=== PATIENT | female | born 1970 | race Caucasian/White ===

== ENCOUNTER 2020-03-18 09:53 | Emergency (ER) | payer BC, OTHER ==
--- NOTE | 2020-03-18 10:39 | EDM.PDOC ---
ED HPI GENERAL MEDICAL PROBLEM - General Chief Complaint: Flank Pain Stated Complaint: LT SIDE ARM AND FLANK PAIN Time Seen by Provider: 03/18/20 10:15 Source of Information: Reports: Patient History Limitations: Reports: No Limitations - History of Present Illness INITIAL COMMENTS - FREE TEXT/NARRATIVE: 49-year-old female presents to the ER with complaints of left flank pain that started 2 days ago, she states that she became dizzy today associated with it and decided to come to the emergency department. She denies nausea vomiting or diarrhea. States she has developed a cough and chills over the past couple of days as well. Pain is located in the left flank, she says it is intermittent and it does get worse with taking a deep breath although in the shower this morning she was standing and said it was a stabbing pain and she had to brace herself so that she did not fall. She also states that the pain is now radiating around the front of her abdomen under her left ribs. She states that laying in bed makes it feel better. She also reports that over the last couple of the days she has noticed both of her arms tingling at nighttime and increased weakness she initially thought it was when she had sleep with her arms elevated above her head however she states that there is no association with this. Also states over the course of the past 2 days she has been sleeping significantly more and has no energy. She is not aware of any known exposure to Covid and states she has been good about wearing a mask and face shield when at work. History of elevated cholesterol for which she does not take medication otherwise states medical history is unremarkable. Her primary care physician is Nicci León at [facility]. Onset: Gradual Left Flank Pain Score (Numeric/FACES): 3 - Related Data Allergies Allergy/AdvReac Type Severity Reaction Status Date / Time No Known Allergies Allergy Verified 03/18/20 10:07 Home Meds: Home Meds Levothyroxine [Synthroid] 50 mcg PO ACBREAKFAST 03/18/20 [History] Sertraline [Zoloft] 50 mg PO DAILY 03/18/20 [History] Past Medical History - Past Health History Medical/Surgical History: Denies Medical/Surgical History HEENT History: Reports: Glaucoma Gastrointestinal History: Reports: GERD Musculoskeletal History: Reports: Other (See Below) Other Musculoskeletal History: colar bone Psychiatric History: Reports: Depression Endocrine/Metabolic History: Reports: Hypothyroidism - Past Surgical History Female Surgical History: Reports: Hysterectomy Social & Family History - Tobacco Use Tobacco Use Status *Q: Current Some Day Tobacco User Years of Tobacco use: 20 Packs/Tins Daily: 0 - Caffeine Use Caffeine Use: Reports: Coffee - Recreational Drug Use Recreational Drug Use: No ED ROS GENERAL - Review of Systems Review Of Systems: See Below Constitutional: Reports: Chills, Malaise, Weakness HEENT: Denies: Throat Pain Respiratory: Reports: Shortness of Breath, Cough. Denies: Pleuritic Chest Pain, Sputum Cardiovascular: Reports: Dyspnea on Exertion, Lightheadedness. Denies: Chest Pain, Blood Pressure Problem, Edema, Palpitations, Syncope Endocrine: Reports: No Symptoms GI/Abdominal: Reports: Abdominal Pain (Radiating from left flank to left upper abdomen beneath rib cage). Denies: Black Stool, Constipation, Diarrhea, Nausea, Vomiting : Reports: Flank Pain (Left). Denies: Dysuria, Frequency, Hematuria, Incontinence, Urgency, Urinary Retention Musculoskeletal: Reports: Shoulder Pain (Bilateral) Skin: Reports: No Symptoms Neurological: Reports: Headache, Numbness (Bilateral shoulders) Psychiatric: Reports: No Symptoms Hematologic/Lymphatic: Reports: No Symptoms Immunologic: Reports: No Symptoms ED EXAM, GENERAL - Physical Exam Exam: See Below Exam Limited By: No Limitations General Appearance: Alert, WD/WN, No Apparent Distress Eye Exam: Bilateral Eye: EOMI, PERRL Head: Atraumatic, Normocephalic Neck: Normal Inspection, Supple, Non-Tender, Full Range of Motion Respiratory/Chest: No Respiratory Distress, Lungs Clear, Normal Breath Sounds, No Accessory Muscle Use, Chest Non-Tender Cardiovascular: Normal Peripheral Pulses, Regular Rate, Rhythm, No Edema, No Murmur Peripheral Pulses: 2+: Radial (L), Radial (R), Dorsalis Pedis (L), Dorsalis Pedis (R) GI/Abdominal: Normal Bowel Sounds, Soft, Tender (Left upper quadrant tender with palpation) (Female) Exam: Deferred Rectal (Female) Exam: Deferred Back Exam: Normal Inspection, Full Range of Motion Extremities: Normal Inspection, Normal Range of Motion, Non-Tender, No Pedal Edema Neurological: Alert, Oriented, Normal Cognition Psychiatric: Normal Affect, Normal Mood Skin Exam: Warm, Dry, Intact Lymphatic: No Adenopathy #1 Interpretation EKG Date: 03/18/20 Time: 11:02 Rhythm: NSR Rate (Beats/Min): 67 [place]: Normal P-Wave: Present QRS: Normal ST-T: Normal QT: Normal Comparison: NA - No Prior EKG Course - Vital Signs Last Recorded V/S: Last Vital Signs Temp 98.3 F 03/18/20 09:59 Pulse 77 03/18/20 09:59 Resp 16 03/18/20 09:59 BP 137/57 L 03/18/20 09:59 Pulse Ox 96 03/18/20 09:59 - Orders/Labs/Meds Orders: Active Orders 24 hr Category Date Time Status EKG Documentation Completion [RC] STAT Care 03/18/20 10:25 Active Labs: Laboratory Tests 03/18/20 03/18/20 03/18/20 Range/Units 10:43 10:43 11:05 WBC 8.43 (3.98-10.04) K/mm3 RBC 4.51 (3.98-5.22) M/mm3 Hgb 13.9 (11.2-15.7) gm/dl Hct 41.9 (34.1-44.9) % MCV 92.9 (79.4-94.8) fl MCH 30.8 (25.6-32.2) pg MCHC 33.2 (32.2-35.5) g/dl RDW Std Deviation 43.9 (36.4-46.3) fL Plt Count 332 (182-369) K/mm3 MPV 9.7 (9.4-12.3) fl Neut % (Auto) 73.1 H (34.0-71.1) % Lymph % (Auto) 16.8 L (19.3-51.7) % Riley % (Auto) 7.8 (4.7-12.5) % Eos % (Auto) 2.0 (0.7-5.8) Baso % (Auto) 0.2 (0.1-1.2) % Neut # (Auto) 6.15 H (1.56-6.13) K/mm3 Lymph # (Auto) 1.42 (1.18-3.74) K/mm3 Riley # (Auto) 0.66 H (0.24-0.36) K/mm3 Eos # (Auto) 0.17 (0.04-0.36) K/mm3 Baso # (Auto) 0.02 (0.01-0.08) K/mm3 Sodium 132 L (136-145) mEq/L Potassium 4.0 (3.5-5.1) mEq/L Chloride 98 (98-107) mEq/L Carbon Dioxide 26 (21-32) mEq/L Anion Gap 12.0 (5-15) BUN 14 (7-18) mg/dL Creatinine 0.7 (0.55-1.02) mg/dL Est Cr Clr Drug Dosing 72.55 mL/min Estimated GFR (MDRD) > 60 (>60) mL/min BUN/Creatinine Ratio 20.0 H (14-18) Glucose 92 (74-106) mg/dL Calcium 9.1 (8.5-10.1) mg/dL Total Bilirubin 0.5 (0.2-1.0) mg/dL AST 15 (15-37) U/L ALT 28 (14-59) U/L Alkaline Phosphatase 77 (46-116) U/L Troponin I < 0.017 (0.00-0.056) ng/mL Total Protein 7.5 (6.4-8.2) g/dl Albumin 3.7 (3.4-5.0) g/dl Globulin 3.8 gm/dL Albumin/Globulin Ratio 1.0 (1-2) Urine Color (Yellow) Urine Appearance (Clear) Urine pH (5.0-8.0) Ur Specific [place] (1.005-1.030) Urine Protein (Negative) Urine Glucose (UA) (Negative) Urine Ketones (Negative) Urine Occult Blood (Negative) Urine Nitrite (Negative) Urine Bilirubin (Negative) Urine Urobilinogen (0.2-1.0) Ur Leukocyte Esterase (Negative) Urine RBC (0-5) /hpf Urine WBC (0-5) /hpf Ur Epithelial Cells (0-5) /hpf Urine Bacteria (FEW) /hpf Urine Mucus (FEW) /hpf Influenza Type A RNA Negative (NEGATIVE) Influenza Type B RNA Negative (NEGATIVE) SARS-CoV-2 RNA ([facility]ER[facility]) Negative (NEGATIVE) 03/18/20 Range/Units 11:20 WBC (3.98-10.04) K/mm3 RBC (3.98-5.22) M/mm3 Hgb (11.2-15.7) gm/dl Hct (34.1-44.9) % MCV (79.4-94.8) fl MCH (25.6-32.2) pg MCHC (32.2-35.5) g/dl RDW Std Deviation (36.4-46.3) fL Plt Count (182-369) K/mm3 MPV (9.4-12.3) fl Neut % (Auto) (34.0-71.1) % Lymph % (Auto) (19.3-51.7) % Riley % (Auto) (4.7-12.5) % Eos % (Auto) (0.7-5.8) Baso % (Auto) (0.1-1.2) % Neut # (Auto) (1.56-6.13) K/mm3 Lymph # (Auto) (1.18-3.74) K/mm3 Riley # (Auto) (0.24-0.36) K/mm3 Eos # (Auto) (0.04-0.36) K/mm3 Baso # (Auto) (0.01-0.08) K/mm3 Sodium (136-145) mEq/L Potassium (3.5-5.1) mEq/L Chloride (98-107) mEq/L Carbon Dioxide (21-32) mEq/L Anion Gap (5-15) BUN (7-18) mg/dL Creatinine (0.55-1.02) mg/dL Est Cr Clr Drug Dosing mL/min Estimated GFR (MDRD) (>60) mL/min BUN/Creatinine Ratio (14-18) Glucose (74-106) mg/dL Calcium (8.5-10.1) mg/dL Total Bilirubin (0.2-1.0) mg/dL AST (15-37) U/L ALT (14-59) U/L Alkaline Phosphatase (46-116) U/L Troponin I (0.00-0.056) ng/mL Total Protein (6.4-8.2) g/dl Albumin (3.4-5.0) g/dl Globulin gm/dL Albumin/Globulin Ratio (1-2) Urine Color Yellow (Yellow) Urine Appearance Clear (Clear) Urine pH 5.5 (5.0-8.0) Ur Specific [place] > or = 1.030 (1.005-1.030) Urine Protein Trace H (Negative) Urine Glucose (UA) Negative (Negative) Urine Ketones Negative (Negative) Urine Occult Blood 1+ H (Negative) Urine Nitrite Negative (Negative) Urine Bilirubin Negative (Negative) Urine Urobilinogen 0.2 (0.2-1.0) Ur Leukocyte Esterase Negative (Negative) Urine RBC 0-5 (0-5) /hpf Urine WBC 5-10 H (0-5) /hpf Ur Epithelial Cells 10-20 H (0-5) /hpf Urine Bacteria Few (FEW) /hpf Urine Mucus Many H (FEW) /hpf Influenza Type A RNA (NEGATIVE) Influenza Type B RNA (NEGATIVE) SARS-CoV-2 RNA ([facility]ERA) (NEGATIVE) - Re-Assessments/Exams Free Text/Narrative Re-Assessment/Exam: 03/18/20 12:18 CBC and CMP are unremarkable. Troponin is less than 0.017. UA shows trace urine protein, 1+ occult blood, nitrite negative, leuk esterase negative, urine WBC 5-10,000, urine epithelial cells 10-20, urine mucus many, influenza A B and Covid are all negative. Portable chest x-ray shows nothing acute. I have ordered a CT of the abdomen without contrast to rule out kidney stone. 03/18/20 13:14 CT of abdomen and pelvis impression per the radiologist report: 1. Colonic diverticuli without diverticulitis. 2. No renal calculi, renal hydronephrosis or renal calculi are seen. 3. Nothing acute is appreciated on noncontrast CT study of the abdomen and pelvis. Will discharge the patient to home to follow- up with Nicci León as she already has an appointment scheduled next week. Departure - Departure Time of Disposition: 13:16 Disposition: Home, Self-Care 01 Clinical Impression: Flank pain, acute - Discharge Information Instructions: Flank Pain, Adult, [id number] Referrals: Nicci León SALES SERVICE REPRESENTATIVE [Primary Care Provider] - Forms: ED Department Discharge Additional Instructions: You are seen in the emergency department today for flank pain and bilateral shoulder numbness. An EKG was performed as well as a chest x-ray and cardiac work-up. These were all unremarkable for cardiac origin. All labs were unremarkable for infection or abnormalities. A CT scan of the abdomen and pelvis were performed and you do not have a kidney stone. Diverticuli was seen on CT scan without diverticulitis which is indicative of inflammation/infection. Urinalysis was unremarkable for infection. Influenza A, B, and Covid tests were all negative as well. Recommend you follow-up with your regular provider as scheduled. Should your condition worsen or change please return to the emergency department. Sepsis Event Note (ED) - Evaluation Sepsis Screening Result: No Definite Risk - Focused Exam Vital Signs: Vital Signs Temp Pulse Resp BP Pulse Ox 03/18/20 09:59 98.3 F 77 16 137/57 L 96 - My Orders Last 24 Hours: My Active Orders 03/18/20 10:25 EKG Documentation Completion [RC] STAT - Assessment/Plan Last 24 Hours: My Active Orders 03/18/20 10:25 EKG Documentation Completion [RC] STAT
--- NOTE | 2020-03-18 11:32 | CR ---
Chest: Portable view of the chest was obtained. Comparison: No prior chest imaging. Findings: Heart size and mediastinum: Heart size and mediastinum are within normal limits for portable technique. No mediastinal mass is seen. Lungs: Lungs are clear with no acute parenchymal change. No pleural effusions are seen. Osseous: No discrete osseous abnormality is appreciated. Impression: 1. Nothing acute is seen on portable chest x-ray. Diagnostic code #1
[2020-03-18 12:12] LABS: CORONAVIRUS COVID-19 NAA NEGATIVE (NEGATIVE)
--- NOTE | 2020-03-18 13:03 | CT ---
CT abdomen and pelvis Technique: Multiple axial sections were obtained from above the dome of the diaphragm inferiorly to the pubic symphysis. Intravenous and oral contrast was not utilized. Study has been performed as a ureteral stone protocol. Reconstructed coronal and sagittal images were obtained. Comparison: No prior CT abdomen or pelvis study is available. Findings: Renal: Both kidneys show no abnormal calcifications. No hydronephrosis is appreciated. No ureteral dilatation or ureteral stone is seen. No bladder calculi are seen. Lung bases: Visualized lung bases show nothing acute. Liver and spleen: Liver and spleen show no focal abnormality. Gallbladder contains no calcified gallstones. Adrenal glands: Adrenal glands show no nodule. Pancreas shows no abnormality. Aorta, retroperitoneum and mesentery: Aorta shows no aneurysm. No retroperitoneal adenopathy is seen. Small fat-containing umbilical hernia is noted. No additional mesenteric abnormalities are seen. Pelvis: Diverticuli are seen within the descending and sigmoid colon. No inflammatory change is seen to indicate diverticulitis. Bowel: Appendix is seen which is normal in size. No bowel dilatation or discrete bowel wall thickening is appreciated. Osseous: No acute osseous findings are appreciated. Impression: 1. Colonic diverticuli without diverticulitis. 2. No renal calculi, renal hydronephrosis or renal calculi are seen. 3. Nothing acute is appreciated on noncontrast CT study of the abdomen and pelvis. Diagnostic code #2
== END 2020-03-18 13:37 | disposition home or self-care (01) ==
LOC: JD.ED 09:53
DX: R10.12 Left upper quadrant pain (principal); F17.210 Nicotine dependence, cigarettes, uncomplicated; F32.9 Major depressive disorder, single episode, unspecified; E03.9 Hypothyroidism, unspecified; Z79.899 Other long term (current) drug therapy; Z20.828 Contact with and (suspected) exposure to other viral communicable diseases
CPT/HCPCS: 0240U; 36415; 71045; 71045-26; 74176; 74176-26; 80053; 81001; 84484; 85025; 93005; 93010; 99283; 99284-25